=== PATIENT | female | born 1990 | race Caucasian/White ===

== ENCOUNTER 2024-03-06 09:50 | Outpatient (CLI) | payer SELFPAY ==
--- NOTE | ~2024-03-06 | XR_ITS ---
AP lateral views of the left hip Clinical history: Pain Findings: No acute fracture or dislocation is seen. Osseous alignment is anatomic. Left hip joint is preserved. Soft tissues are unremarkable. Impression: No significant abnormality is seen. Reviewed, dictated and finalized at location M. Impression: No significant abnormality is seen.
== END 2024-03-06 09:51 ==
LOC: MICIMG 09:51
PROVIDERS: PCP Chiropractor Rehabilitation; Visit Provider Chiropractor Rehabilitation
DX: M25.552 Pain in left hip (principal)
CPT/HCPCS: 73502